=== PATIENT | male | born 1980 | race Asian ===

== ENCOUNTER → 2018-12-03 | Outpatient (CLI) | payer BC ==
[~2018-12-03] MED LIST: NORVASC
[2018-12-03 16:05] LABS: Albumin 4.1 g/dL (3.4-5.0); BUN/Creatinine Ratio 16.7; CRP High Sensitivity 0.76 mg/dL (< 0.3); Calcium 9.4 mg/dL (8.5-10.1); Uric Acid 7.4 mg/dL (3.5-7.2)
[2018-12-03 16:08] LABS: Bilirubin, Total 0.4 mg/dL (0.2-1.0); Total Protein 8.6 g/dL (6.4-8.2)
[2018-12-03 18:44] LABS: Basophils # (auto) 0.1 uL; Basophils % (auto) 0.9 % (0.0-2.0); Eosinophils # (auto) 0.4 uL; Eosinophils % (auto) 4.4 % (0.0-7.0); Hematocrit 44.5 % (41.0-53.0); Hemoglobin 15.3 g/dL (13.5-17.5); Lymphocytes # (auto) 2.2 uL; Lymphocytes % (auto) 23.1 % (10.0-50.0); Mean Corpuscular Hemoglobin 30.2 pg (28.0-32.0); Mean Corpuscular Hgb Conc. 34.3 g/dL (32.0-36.0); Monocytes # (auto) 0.6 uL; Monocytes % (auto) 6.5 % (0.0-12.0); Neutrophils # (auto) 6.2 uL; Neutrophils % (auto) 65.1 % (37.0-80.0); Nucleated Red Blood Cells % 0.1 %; Platelet Count (auto) 318 10^3/uL (140-450); Red Blood Cells 5.06 10^6/uL (4.5-5.90); Red Cell Distribution Width 12.7 % (11.8-14.3); White Blood Cell 9.5 10^3/uL (4.4-10.8)
== END | disposition home or self-care (01) ==
LOC: LAB 15:23
PROVIDERS: ATTEND Internal Medicine
DX: L93.2 Other local lupus erythematosus (principal)
CPT/HCPCS: 36415; 80053; 84550; 85025; 85652; 86141; 86200